=== PATIENT | male | born 1965 ===

== ENCOUNTER 2017-05-10 07:42 | Emergency (ER) | payer OTHER ==
[2017-05-10 08:05] VITALS: RESP 20; TEMP 98.2
[2017-05-10] MEDS ORDERED: Sodium Chloride 0.9% 500 ML IV ONE (08:20)
[2017-05-10 08:31] LABS: BASO # 0.1 K/uL (0.0-0.2); EOS # 0.1 K/uL (0.0-0.7); EOS % 1.6 % (0.0-4.0); HEMOGLOBIN 15.4 g/dL (12.0-18.0); MEAN CELL VOLUME 87.2 fL (80.0-94.0); MEAN CORPUSCULAR HEMOGLOBIN 29.5 pg (27.0-31.0); MEAN CORPUSCULAR HGB CONC 33.8 g/dL (33.0-37.0); MEAN PLATELET VOLUME 9.6 fL (7.2-11.7); MONO # 0.6 K/uL (0.0-0.8); MONO % 8.7 % (0.0-10.0); NEUT % 59.7 % (50.0-75.0); NRBC % 0.1 % (0.0-2.0); RBC 5.22 Mil/uL (4.40-5.90); RED CELL DISTRIBUTION WIDTH 13.4 % (11.5-14.5); WHITE BLOOD COUNT 6.7 K/uL (4.8-10.8)
[2017-05-10] MEDS ORDERED: Sodium Chloride 0.9% 1,000 ML ONE (08:33)
[2017-05-10 08:49] LABS: ALBUMIN 3.9 g/dL (3.5-5.0)
[2017-05-10 08:52] LABS: ALB/GLOB RATIO 1.5 (1.0-2.1); AST/SGOT 54 U/L (17-59); BLOOD UREA NITROGEN 11 mg/dL (9-20); GFR AFRICAN-AMERICAN > 60; GFR NON-AFRICAN AMERICAN > 60
[2017-05-10 08:53] LABS: ALT/SGPT 116 U/L (21-72); CALCIUM 8.4 mg/dl (8.6-10.4)
--- NOTE | 2017-05-10 08:54 | C.PDOC ---
History Of Present Illness 51 yr old with recent PMHx of anxiety and depression(month ago), presents to the ER for evaluation of sudden onset of left sided chest pain associated with SOB, diaphoresis developed early today, while on way to work. Patient states "not feeling well for the past month, feeling weak, intermittent headaches, when was seen by my primary doctor and was diagnosed with depression and anxiety and started on lexapro". Patient reports, no change in symptoms for month after started to take medication. Pt describes CP as sudden, sharp, non- radiating, localized, last hour and improved with time. Patient states currently the pain is moderately improve. Otherwise, pt denies fever, chills, denies worse headache of life, vision changes, focal deficits, nausea, vomiting , neck pain, palpitation, cough, abd. pain, back pain, peripheral edema, denies any other active complaints. Ambulate to ED for evaluation, appears anxious at present time. Time Seen by Provider: 05/10/17 08:02 Chief Complaint (Nursing): Chest Pain History Per: Patient History/Exam Limitations: no limitations Onset/Duration Of Symptoms: Sudden Onset (Early today ) Past Medical History Reviewed: Historical Data, Nursing Documentation, Vital Signs Vital Signs: Last Vital Signs Temp 98.2 F 05/10/17 07:57 Pulse 81 05/10/17 07:57 Resp 20 05/10/17 07:57 BP 132/86 05/10/17 07:57 Pulse Ox 96 05/10/17 10:21 Family History: States: No Known Family Hx - Social History Hx Alcohol Use: No Hx Substance Use: No - Immunization History Hx Tetanus Toxoid Vaccination: No Hx Influenza Vaccination: No Hx Pneumococcal Vaccination: No Review Of Systems Except As Marked, All Systems Reviewed And Found Negative. Constitutional: Negative for: Fever Eyes: Negative for: Vision Change Cardiovascular: Positive for: Chest Pain Respiratory: Positive for: Shortness of Breath Gastrointestinal: Negative for: Nausea, Vomiting Neurological: Negative for: Weakness, Numbness Physical Exam - Physical Exam Appears: Well, Non-toxic, Other ((+) Anxious ) Skin: Warm, Dry, No Rash Head: Normacephalic Eye(s): bilateral: Normal Inspection, PERRL, EOMI Ear(s): Bilateral: Normal Nose: No Discharge Oral Mucosa: Moist, No Drooling Tongue: Normal Appearing Lips: Normal Appearing Throat: No Erythema, No Exudate, No Drooling Neck: Trachea Midline, Supple, Other ((-) carotid bruits, (-) JVD) Chest: Symmetrical, No Tenderness Cardiovascular: Rhythm Regular, No Murmur Respiratory: No Decreased Breath Sounds, No Accessory Muscle Use, No Rales, No Rhonchi, No Stridor, No Wheezing Gastrointestinal/Abdominal: Soft, No Tenderness, No Distention, No Guarding Back: No CVA Tenderness Extremity: Normal ROM, No Pedal Edema, No Swelling Neurological/Psych: Oriented x3, Normal Speech, Normal Motor, Normal Sensation, Normal Reflexes ED Course And Treatment - Laboratory Results Result Diagrams: 05/10/17 08:27 05/10/17 08:27 Lab Interpretation: Normal ECG: Interpreted By Me, Viewed By Me ECG Rhythm: Sinus Rhythm ECG Interpretation: Normal Rate From EC (BPM) O2 Sat by Pulse Oximetry: 96 (RA ) Pulse Ox Interpretation: Normal - Other Rad CXR X-Ray: Viewed By Me, Read By Radiologist Interpretation: HISTORY: chest pain. COMPARISON: No prior. TECHNIQUE: Chest PA and lateral. FINDINGS: LUNGS: No active pulmonary disease. PLEURA: No significant pleural effusion identified. No pneumothorax apparent. CARDIOVASCULAR: Normal. OSSEOUS STRUCTURES: No significant abnormalities. Minor degenerative changes of the right acromioclavicular joint. . VISUALIZED UPPER ABDOMEN: Normal. OTHER FINDINGS: None. IMPRESSION: No acute infiltrates. - CT Scan/US CT - Head Other Rad Studies (CT/US): Read By Radiologist, Radiology Report Reviewed CT/US Interpretation: PROCEDURE: CT HEAD WITHOUT CONTRAST. HISTORY: headache. COMPARISON: None available. TECHNIQUE: Axial computed tomography images were obtained through the head/brain without intravenous contrast. Radiation dose: Total exam DLP = 885.27 mGy-cm. This CT exam was performed using one or more of the following dose reduction techniques: Automated exposure control, adjustment of the mA and/or kV according to patient size, and/ or use of iterative reconstruction technique. FINDINGS: HEMORRHAGE: No intracranial hemorrhage. BRAIN: No mass effect or edema. No atrophy or chronic microvascular ischemic changes. VENTRICLES: Unremarkable. No hydrocephalus. CALVARIUM: Unremarkable. PARANASAL SINUSES: Unremarkable as visualized. No significant inflammatory changes. MASTOID AIR CELLS: Unremarkable as visualized. No inflammatory changes. OTHER FINDINGS: None. IMPRESSION: No acute intracranial hemorrhage. Progress Note: On re-eavluation, pt appears more comfortable, not in any apaprent distress. Pt reports, ' feels better now" after ED treatment and wish to leave " need to go to work now". Afebrile, hemodynamicaly stable. Non- toxic. PulsEOx 96% RA. ENT: no acute findings. Neck: Supple, (-) JVD, (-) carotid bruits. Lungs: CTA B/L, BS equal B/L. CVS: (*+)S1S2, reg. Abd: benign , (-) guarding, (-) rebound. back: (-) CVA tenderness. no peripheral edema. Case discussed with ED attending, diagnostics, imaging review and appears normal. No further evaluation recommend, discharge with outpt f/u recommend at present time. Case laso discussed with PES and pt was evaluated by crisis. case discussed with psych -on-call , pt is stable for discharge and outpt f/u now. Pt denies suicidal or homocidal ideation or attempts. results review and condition discussed with pt. Pt has clinical findings c/w chest pain r/o anxiety. Pt advised and ref. to f/u w ith PMD and Psych in 1-2 days for re-eavl. return to ED if anyw orsening or new changes. Medical Decision Making Medical Decision Making: PLAN: * CT - Head * CXR * EKG * Drug Screen * Troponin * D-Dimer * CBC * CMP * Urinalysis * Xanax PO * Sodium Chloride IV Disposition Counseled Patient/Family Regarding: Studies Performed, Diagnosis, Need For Followup, Rx Given - Disposition Referrals: Mat Maldonado MD [Medical Doctor] - Tiffany Valencia MD [Staff Provider] - Disposition: HOME/ ROUTINE Disposition Time: 10:17 Condition: STABLE Additional Instructions: Follow up with PMD, Psychiatrist in 1-2 days for re-evaluation and further treatment. Continue Lexapro as prescribed until re-eval by psychiatrist Benadryl 50 mg at bedtime for " anxiety" symptoms return to ED at any time if any worsening or new changes. Instructions: Chest Pain (ED) - Clinical Impression Clinical Impression: Chest pain - PA / VICE PRESIDENT NETWORK DEVELOPMENT / Resident Statement MD/DO has reviewed & agrees with the documentation as recorded. - Scribe Statement The provider has reviewed the documentation as recorded by the Scribe Olivia Dennis All medical record entries made by the Scribe were at my direction and personally dictated by me. I have reviewed the chart and agree that the record accurately reflects my personal performance of the history, physical exam, medical decision making, and the department course for this patient. I have also personally directed, reviewed, and agree with the discharge instructions and disposition.
[2017-05-10 09:14] LABS: URINE BILIRUBIN NEGATIVE (NEGATIVE); URINE BLOOD NEGATIVE (NEGATIVE); URINE CLARITY Clear (Clear); URINE COLOR Yellow (YELLOW); URINE GLUCOSE (UA) NORMAL (Normal); URINE LEUKOCYTE ESTERASE NEG Leu/uL (Negative); URINE NITRATE NEGATIVE (NEGATIVE); URINE PROTEIN NEGATIVE (NEGATIVE); URINE UROBILINOGEN NORMAL mg/dL (0.2-1.0)
[2017-05-10 09:25] LABS: BARBITURATES, UR NEGATIVE (NEGATIVE); BENZODIAZEPINES, UR POSITIVE (NEGATIVE)
[2017-05-10 09:28] LABS: OPIATES, UR NEGATIVE (NEGATIVE)
--- NOTE | 2017-05-10 09:28 | RAD ---
HISTORY: chest pain COMPARISON: No prior. TECHNIQUE: Chest PA and lateral FINDINGS: LUNGS: No active pulmonary disease. PLEURA: No significant pleural effusion identified. No pneumothorax apparent. CARDIOVASCULAR: Normal. OSSEOUS STRUCTURES: No significant abnormalities. Minor degenerative changes of the right acromioclavicular joint. . VISUALIZED UPPER ABDOMEN: Normal. OTHER FINDINGS: None. IMPRESSION: No acute infiltrates.
[2017-05-10 09:29] LABS: PHENCYCLIDINE, UR NEGATIVE (NEGATIVE)
[2017-05-10 09:41] LABS: D DIMER < 200 ng/mlDDU (0-243)
[2017-05-10 09:42] LABS: PARTIAL THROMBOPLASTIN TIME 30 SECONDS (21-34); PROTHROMBIN TIME 11.9 SECONDS (9.7-12.2)
--- NOTE | 2017-05-10 09:49 | CT ---
PROCEDURE: CT HEAD WITHOUT CONTRAST. HISTORY: headache COMPARISON: None available. TECHNIQUE: Axial computed tomography images were obtained through the head/brain without intravenous contrast. Radiation dose: Total exam DLP = 885.27 mGy-cm. This CT exam was performed using one or more of the following dose reduction techniques: Automated exposure control, adjustment of the mA and/or kV according to patient size, and/or use of iterative reconstruction technique. FINDINGS: HEMORRHAGE: No intracranial hemorrhage. BRAIN: No mass effect or edema. No atrophy or chronic microvascular ischemic changes. VENTRICLES: Unremarkable. No hydrocephalus. CALVARIUM: Unremarkable. PARANASAL SINUSES: Unremarkable as visualized. No significant inflammatory changes. MASTOID AIR CELLS: Unremarkable as visualized. No inflammatory changes. OTHER FINDINGS: None. IMPRESSION: No acute intracranial hemorrhage.
[2017-05-10 10:44] VITALS: BP 113/75; PULSE 79; O2SAT 97
--- NOTE | 2017-05-10 16:09 | CARD ---
APPROVED REPORT EKG Measurement Heart [id number] <Conclusion> Normal sinus rhythm Possible Left atrial enlargement Borderline ECG
== END 2017-05-10 10:55 | disposition home or self-care (01) ==
LOC: C.ER 07:42
DX: R07.89 Other chest pain (principal)
CPT/HCPCS: 70450; 71020; 80053; 80324; 80345; 80346; 80349; 80353; 80358; 80361; 81001; 83992; 84484; 85025; 85378; 85610; 85730; 93005; 96360; 99285; J7040

== ENCOUNTER 2019-03-13 07:54 | Emergency (ER) | payer OTHER | END 2019-03-13 10:53 | disposition home or self-care (01) | LOC: C.ER 07:54 ==